=== PATIENT | female | born 1960 | race Caucasian/White ===

== ENCOUNTER 2020-04-18 22:38 | Emergency (ER) | payer SELFPAY ==
[2020-04-19] MEDS ORDERED: HYDROCODONE/ACETAMINOPHEN 5-325 MG TABLET PO ONE (00:45)
--- NOTE | 2020-04-19 01:42 | RADIOLOGY REPORT (SQ) ---
EXAM DESCRIPTION: XR FOREARM 2 VIEWS COMPLETED DATE/TME: 04/19/2020 00:46 CLINICAL HISTORY: 60 years, Female, pain/swelling COMPARISON: None. NUMBER OF VIEWS: Two TECHNIQUE: Two views of the left forearm LIMITATIONS: None. FINDINGS: No acute fracture or dislocation. No large soft tissue swelling. No radiopaque foreign body. IMPRESSION: No acute fracture or dislocation. copyright 2010 [employer]- All Rights Reserved
--- NOTE | 2020-04-19 01:46 | RADIOLOGY REPORT (SQ) ---
EXAM DESCRIPTION: XR WRIST 3 OR MORE VIEWS COMPLETED DATE/TME: 04/19/2020 00:46 CLINICAL HISTORY: 60 years, Female, pain/swelling COMPARISON: None. NUMBER OF VIEWS: Three TECHNIQUE: Three views of the left wrist LIMITATIONS: None. FINDINGS: There is a 2 mm calcification adjacent to the lunate on the oblique view which may represent a fracture fragment. Remainder of the bones appear intact. No large soft tissue swelling. No radiopaque foreign body. IMPRESSION: 2 mm calcification near the base of the lunate, which may represent a fracture fragment. copyright 2010 [employer]- All Rights Reserved
--- NOTE | 2020-04-19 02:09 | ER Document Report ---
HPI - HPI Patient complains to provider of: left wrist and arm pain Time Seen by Provider: 04/19/20 00:39 Pain Level: 5 Context: 60-year-old female presents to the emergency room complaining of pain and swelling to her left wrist and forearm that started earlier today. She denies any known trauma or injury. States she does do a lot of heavy lifting at work and thinks she may have banged it early in the day but she is unsure. Has a history of a previous left wrist fracture. Tried taking some ibuprofen around 630 without relief. Patient is right-handed. Not on blood thinners. Associated Symptoms: None Exacerbated by: Movement Relieved by: Denies Recently seen / treated by doctor: No - Previous fracture approximately 18 years ago. - ROS Systems Reviewed and Negative: Yes All other systems reviewed and negative - NEURO Neurology: DENIES: Weakness - REPRODUCTIVE Reproductive: DENIES: : - MUSCULOSKELETAL Musculoskeletal: REPORTS: Extremity pain - DERM Skin Color: Normal Past Medical History - General Information source: Patient - Social History Smoking Status: Never Smoker Frequency of alcohol use: None Drug Abuse: None Family History: Reviewed & Not Pertinent - Past Medical History Cardiac Medical History: Denies: Hx Coronary Artery Disease, Hx Hypertension Pulmonary Medical History: Denies: Hx Asthma Endocrine Medical History: Denies: Hx Diabetes Mellitus Type 1, Hx Diabetes Mellitus Type 2 Traumatic Medical History: Reports: Hx Fractures - PT REPORTS HX "BROKE TAILBONE" Past Surgical History: Reports: Hx Section - x 3, Hx Hysterectomy - Immunizations Hx Diphtheria, Pertussis, Tetanus Vaccination: Yes Vertical Provider Document - CONSTITUTIONAL Agree With Documented VS: Yes Exam Limitations: No Limitations General Appearance: Mild Distress - INFECTION CONTROL TRAVEL OUTSIDE OF THE [place] IN LAST 30 DAYS: No - HEENT HEENT: Atraumatic, Normocephalic - NECK Neck: Normal Inspection, Supple, Thyroid Normal - RESPIRATORY Respiratory: Breath Sounds Normal, No Respiratory Distress, Chest Non-Tender - CARDIOVASCULAR Cardiovascular: Regular Rate, Regular Rhythm, No Murmur - MUSCULOSKELETAL/EXTREMETIES Musculoskeletal/Extremeties: Tender - Tenderness on palpation over the left dorsal aspect of the wrist. There is obvious swelling noted proximal to the left fourth and fifth fingers along the ulnar aspect. There is no obvious deformity noted. Painful range of motion with flexion, extension internal and external rotation of the left wrist. There is also tenderness on palpation to the mid aspect of the left forearm. No obvious deformity noted to the forearm. - NEURO Level of Consciousness: Awake, Alert, Appropriate Motor/Sensory: No Motor Deficit, No Sensory Deficit Notes: Positive left radial pulse. Capillary refill less than 3 seconds. - DERM Integumentary: Warm, Dry Course - Re-evaluation Re-evalutation: 04/19/20 02:03 X-rays and plan of care were discussed with attending Dr. Tracy patient will be placed in a volar splint and sling with outpatient orthopedics follow-up.. Patient is resting comfortably with decreased pain. Reviewed x-ray results with patient. Aware of need for volar splint and sling which will be provided by nursing staff as documented. E force was reviewed okay for narcotic prescription. Patient was counseled rest, ice, elevate her left arm for at least 20 minutes 3 times a day. Outpatient follow-up with orthopedics as discussed. On-call physician was provided. Patient was given strict return to the emergency room guidelines. Return for any new or worsening symptoms. All questions were answered. Patient verbalized understanding and agrees with plan of care. 04/19/20 02:28 - Vital Signs Vital signs: Temp Pulse Resp BP Pulse Ox 98.2 F 75 17 139/81 H 95 04/18/20 23:01 04/18/20 23:01 04/18/20 23:01 04/18/20 23:01 04/18/20 23:01 - Diagnostic Test Radiology reviewed: Reports reviewed Procedures - Immobilization Left Wrist Time completed: 02:27 Pre-Proc Neuro Vasc Exam: Normal Immobilizer type: Volar splint, Sling Performed by: PCT Post-Proc Neuro Vasc Exam: Normal Alignment checked and good: Yes Discharge - Discharge Clinical Impression: Left lunate fracture Qualifiers: Encounter type: initial encounter Fracture type: closed Fracture alignment: nondisplaced Qualified Code(s): S62.125A - Nondisplaced fracture of lunate [semilunar], left wrist, initial encounter for closed fracture Condition: Stable Disposition: HOME, SELF-CARE Instructions: Avulsion Fracture ([facility]), Fractured Navicular of the Wrist ([facility]) Additional Instructions: Rest, ice, elevate your left arm for at least 20 minutes 3 times a day. Call orthopedics for an outpatient follow-up appointment. Take medications as prescribed. Return to the emergency room for any new or worsening symptoms. Prescriptions: Hydrocodone/Acetaminophen [[place] 5-325 mg Tablet] 1 tab PO Q6H PRN #12 tablet PRN Reason: For Pain Forms: Return to Work Referrals: CHANTELLE ALFARO [NO LOCAL MD] - Follow up as needed MIGUEL ALVAREZ DO [ACTIVE STAFF] - Follow up tomorrow (Call tomorrow for an outpatient follow-up appointment)
[2020-04-19 03:55] VITALS: BP 130/73
== END 2020-04-19 02:35 | disposition home or self-care (01) ==
LOC: ER 22:38
DX: S62.125A Nondisplaced fracture of lunate [semilunar], left wrist, initial encounter for closed fracture (principal); X58.XXXA Exposure to other specified factors, initial encounter
CPT/HCPCS: 99284